=== PATIENT | male | born 1945 | race Caucasian/White ===

== ENCOUNTER → 2021-06-12 | Outpatient (CLI) | payer OTHER ==
--- NOTE | 2021-06-16 16:05 | REP ---
INDICATION: \\\RESTAGING LUNG NODULE. COMPARISON: CT chest, 05/09/2021. TECHNIQUE: 9.7 mCi of F 18 FDG was administered intravenously. Following a standard uptake period, PET-CT images were obtained from the skull base to the midthigh. FINDINGS: There is normal distribution of FDG activity in the visualized brain parenchyma. 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 There is nasal septal deviation to the right. There is no evidence of cervical lymphadenopathy. There is moderate upper lobe predominant emphysema with both centrilobular and paraseptal components. There is a posterior, peripheral, partially cystic, partially solid, nodule in the upper lobe of the right lung, measuring 16 x 14 x 10 mm, demonstrating FDG activity, max SUV 1.3. There are no pleural effusions. The heart is enlarged. There is no pericardial effusion. 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 There is no axillary, hilar or mediastinal lymphadenopathy. There is a 2.5 cm in diameter benign cortical cyst in the interpolar region of the right kidney. There is right nephrolithiasis. There is 11 mm in diameter umbilical hernia containing normal fat. 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 There are scattered colonic diverticula without evidence of acute inflammation. There is no evidence of abdominopelvic lymphadenopathy. There are bilateral total hip arthroplasties. There is no evidence of bony metastatic disease. IMPRESSION: 1. The partially cystic partially solid nodule in the upper lobe of the right lung demonstrates FDG activity consistent with inflammation/scarring. 2. There are no foci of abnormal FDG activity to suggest neoplastic disease. 3. Other findings as noted. <Electronically signed by Negrito Vogt > 06/16/21 [id number]
== END ==
LOC: M PLARAD 11:39
PROVIDERS: ATTEND Physician Assistant Medical
DX: R91.1 Solitary pulmonary nodule (principal); J43.9 Emphysema, unspecified; N28.1 Cyst of kidney, acquired; N20.0 Calculus of kidney; K42.9 Umbilical hernia without obstruction or gangrene; K57.30 Diverticulosis of large intestine without perforation or abscess without bleeding; Z96.643 Presence of artificial hip joint, bilateral
CPT/HCPCS: 78815; A9552

== ENCOUNTER → 2021-07-01 | Outpatient (REF) | payer OTHER ==
[2021-07-01 20:19] LABS: APPEARANCE, URINE CLOUDY (CLEAR); BACTERIA, URINE AUTO NEGATIVE (NEGATIVE); BILIRUBIN, URINE AUTO NEGATIVE (NEGATIVE); BLOOD, URINE BLOOD 2+ (NEGATIVE); COLOR, URINE AMBER (YELLOW); GLUCOSE, URINE (UA) AUTO 1+ mg/dL (NEGATIVE); GRANULAR CAST, URINE AUTO 3 /LPF; KETONE, URINE AUTO TRACE mg/dL (NEGATIVE); LEUKOCYTE ESTERASE, URINE AUTO 2+ (NEGATIVE); MUCUS, URINE MODERATE (NEGATIVE); NITRITE, URINE AUTO NEGATIVE (NEGATIVE); PROTEIN, URINE AUTO 2+ mg/dL (NEGATIVE); RBC, URINE AUTO 9 /HPF (0-3); SQUAMOUS EPITHELIAL CELL UR AU 0 /HPF (0-6); TRANSITIONAL EPITHELIAL AUTO <1 /HPF; WBC, URINE AUTO 133 /HPF (0-3)
== END ==
LOC: M LAB REF 19:51
PROVIDERS: ATTEND Physician Assistant Medical
DX: R30.0 Dysuria (principal)